=== PATIENT | female | born 1950 | race Caucasian/White ===

== ENCOUNTER → 2018-02-05 | Outpatient (CLI) | payer MEDICARE ==
--- NOTE | 2018-02-05 09:41 | RAD ---
Abdominal ultrasound, 02/05/2018: HISTORY: Right upper quadrant pain The gallbladder contains multiple echogenic foci with posterior acoustic shadowing. The appearance is that of cholelithiasis. The gallbladder wall is mildly thickened. There is no evidence of a hepatic mass or intrahepatic bile duct dilatation. The visualized portions of the pancreas, spleen and both kidneys are unremarkable. The abdominal aorta and inferior vena cava show no abnormality. No free fluid is evident in the abdomen. IMPRESSION: Cholelithiasis with mild associated gallbladder wall thickening suggesting associated acute or chronic cholecystitis. Electronically signed by: Shahriar Mckeon MD (02/05/2018 9:38 AM) [facility]
== END | disposition home or self-care (01) ==
LOC: US 08:33
PROVIDERS: ATTEND Family Medicine
DX: K80.20 Calculus of gallbladder without cholecystitis without obstruction (principal); R10.11 Right upper quadrant pain
CPT/HCPCS: 76700